=== PATIENT | female | born 1990 | race Caucasian/White ===

== ENCOUNTER → 2022-07-03 12:02 | Outpatient (CLI) | payer OTHER, SELFPAY ==
--- NOTE | 2022-07-03 12:25 | DI.RAD.S_ITS ---
PROCEDURE: XR CHEST 2V INDICATIONS: Wheezing and cough TECHNIQUE: 2 views of the chest were acquired. COMPARISON: None. FINDINGS: Surgical changes and devices: None. Lungs and pleura: Lungs are abnormal with what appears to be mild or early pneumonia medial right lower lung region best seen on the frontal view. This may be located within the medial segment right middle lobe on the lateral view.. No pleural effusions or pneumothorax. Mediastinum: Mediastinal contours are normal. Heart size is normal. Bones and chest wall: No suspicious bony abnormalities. Soft tissues appear unremarkable. IMPRESSION: Mild or early right lower lung pneumonia, likely within the medial segment right middle lobe. Dictated by: Chavo Mercado M.D. on 07/03/2022 at 13:07 Approved by: Chavo Mercado M.D. on 07/03/2022 at 13:08
[2022-07-03 12:48] LABS: COVID-19 CEPHEID 4-PLEX PCR Negative (Negative); Influenza A - CEPHEID Flu A NEGATIVE (NEGATIVE); Influenza B - CEPHEID Flu B NEGATIVE (NEGATIVE); Respiratory Syncytial Virus Negative (Negative)
== END ==
PROVIDERS: Referring Provider Registered Nurse; Visit Provider Registered Nurse
DX: R05.1 Acute cough (principal); R05.9 Cough, unspecified; J18.9 Pneumonia, unspecified organism
CPT/HCPCS: 0241U; 71046